=== PATIENT | male | born 1975 | race Caucasian/White ===

== ENCOUNTER → 2025-03-21 19:33 | Outpatient (CLI) | payer OTHER, SELFPAY ==
--- OUTSIDE RECORDS SUMMARY | 2025-03-21 19:38 | XMS_ITS | Data Portability ---
Author Organization [facility] & FIORELLA Rivera ADMIN Address [address] [place] [id number] Assessment No assessment recorded. Plan of Treatment Reminders Order Date Submit Date Provider Last Modified By Organization Details Last Modified Time Details Appointments OV EST 15 025 01:30PM Diogo Martinez Jr, MD Not available Not available Not available Lab estradi ol, serum 025 [facility] (Lab Registration) , [address] [place], [address], 02/02/2025 11:17:37 Referral None recorde d. Procedures None recorde d. Surgeries None recorde d. Imaging None recorde d. Medication Orders None recorde d. Patient TargetsNo targets recorded. Patient InstructionsNo instructions recorded. Reason for Referral None Reported. Results Created Date Observation Date Name Description Value Unit Range Abnormal Flag Note LastModifiedBy Organization Detail LastModifiedTime 01/29/2001/28/2025 ESTRA DIOL note Unles s other fried noted testi ng perfo rmed at: [facility] [place] [address] [phone] Maxime spears MD CLIA: [id number] Not Available [facility] (Lab Registration) [address] [place], [address], 02/02/2025 11:17:37 01/29/20 25 02/02/2025 ESTRA DIOL estradiol, sensitive 38.9 pg/mL 8.0-35 .0 high Speci men Comme nt: Test( s) 57454 0-Est radio l, Sensi tive Speci men Comme nt: was devel oped and its perfo rmanc e christopher cte risti cs Speci men Comme nt: deter mined by [facility]. It has not been hussein ared or appro whitney Speci men Comme nt: by the Food and Drug Admin istra tion. Metho dolog y: Liqui d chrom atogr aphy tande m mass spect romet ry(LC /MS/M S) Perfo rmed at: - [facility] [place] [address] [facility] , [place] [address] Lab Direc tor: Sarah banda MD, Phone : [phone] SENT TO REFER ENCE LAB Not Available [facility] (Lab Registration) [address], [place], [address], 02/02/2025 11:17:37 Result Notes None recorded. Procedures Surgical History Date Name Laterality Status Provider Name and Address Organization Details Recorded Time implantation of internal cardiac defibrillator completed [facility] [place] 01/28/2025 13:18:[address] [facility] [place] 01/28/2025 13:18:[address] [facility] [place] 01/28/2025 13:18:22 Imaging Results None recorded. Procedure Notes None recorded. Medical Equipment None Reported. Allergies No known drug allergies Medications Name Sig Start Date Stop Date Status Note LastModified by Organization Details LastModified Time metformin 500 mg tablet TAKE ONE (1) TABLET TWICE A DAY BY ORAL ROUTE FOR 90 DAYS. active Not Available Not Available No t Available anastrozole 1 mg tablet TAKE 1/2 TABLET BY MOUTH TWICE WEEKLY active Not Available Not Available No t Available carvedilol 12.5 mg tablet TAKE ONE (1) TABLET BY MOUTH TWO (2) TIMES A DAY WITH MEALS. active Not Available Not Available No t Available citalopram 40 mg tablet TAKE ONE (1) TABLET BY MOUTH EVERY DAY 01/28 completed Not Available Not Available Not Available clonazepam 0.5 mg tablet TAKE ONE (1) TABLET BY MOUTH TWICE DAILY active Not Available Not Available No t Available simvastatin 10 mg tablet TAKE ONE (1) TABLET EVERY DAY BY ORAL ROUTE. active Not Available Not Available No t Available losartan 25 mg tablet TAKE ONE (1) TABLET BY MOUTH EVERY DAY DIRECTED active Not Available Not Available No t Available ergocalcife rol (vitamin D2) 1,250 mcg (50,000 unit) capsule TAKE ONE (1) CAPSULE TWICE A WEEK BY ORAL ROUTE DIRECTED. active Not Available Not Available No t Available testosteron e cypionate 200 mg/mL intramuscul ar oil INJECT INTRAMUSC ULARLY ONE (1) ML EVERY WEEK active Not Available Not Available No t Available ibuprofen 600 mg tablet TAKE ONE (1) TABLET BY MOUTH EVERY SIX (6) HOURS NEEDED FOR PAIN CONTROL active Not Available Not Available No t Available escitalopra m 20 mg tablet TAKE ONE (1) TABLET EVERY DAY BY ORAL ROUTE. active Not Available Not Available No t Available BD Regular Bevel [place] 18 gauge x 1 1/2 USE DIRECTED active Not Available Not Available No t Available BD Eclipse Luer-Ino 3 mL 23 x 1 syringe USE DIRECTED active Not Available Not Available No t Available Ozempic 1 mg/dose (4 mg/3 mL) subcutaneou s pen injector INJECT ONE (1) MG BY SUBCUTANE OUS ROUTE FOR 30 DAYS. 01/28 completed Not Available Not Available Not Available BinaxNOW COVID-19 Ag Self Test kit TEST DIRECTED TODAY 01/28 completed Not Available Not Available Not Available Mounjaro 7.5 mg/0.5 mL subcutaneou s pen injector INJECT 7.5 MG EVERY WEEK BY SUBCUTANE OUS ROUTE. active Not Available Not Available No t Available Mounjaro 5 mg/0.5 mL subcutaneou s pen injector INJECT FIVE (5) MG EVERY WEEK BY SUBCUTANE OUS ROUTE. 01/28 completed Not Available Not Available Not Available Mounjaro 10 mg/0.5 mL subcutaneou s pen injector INJECT 10 MG EVERY WEEK BY SUBCUTANE OUS ROUTE. 01/28 completed Not Available Not Available Not Available Mounjaro 2.5 mg/0.5 mL subcutaneou s pen injector INJECT 2.5MG EVERY WEEK BY SUBCUTANE OUS ROUTE. 08/22 /2025 completed Not Available Not Available Not Available FreeStyle Mando 3 Sensor device USE DIRECTED PER DOCTOR IVY INSTRUCTI ONS CHANGE EVERY 14 DAYS active Not Available Not Available No t Available Ozempic 0.25 mg or 0.5 mg (2 mg/3 mL) subcutaneou s pen injector INJECT 0.25 MG EVERY WEEK BY SUBCUTANE OUS ROUTE FOR 30 DAYS THEN INCREASE TO 0.5MG WEEKLY FOR FOUR (4) WEEKS 01/28 completed Not Available Not Available Not Available Suflave 178.7 gram-7.3 gram-0.5 gram oral solution TAKE BY MOUTH DIRECTED BY DOCTOR WELLERS OFFICE 01/28 completed Not Available Not Available Not Available Vitals Date Recorded Body height Body mass index (BMI) Body weight Provider Name and Address Organization Details Last Updated DateTime 01/28/2025 195.58 cm 52.1 kg/m2 521802.05 g [facility] [place] 01/28/2025 13:16:20 Social History None recorded. Functional Status Question Answer Note LastModified by Organizat ion Details LastModified Time Do you or have you ever used any other forms of tobacco or nicotine? Yes [email or web address] Information not available 01/28/2025 What is your level of alcohol consumption? Occasional [email or web address] Information not available 01/28/2025 Do you or have you ever used smokeless tobacco? Currently chews tobacco [email or web address] Information not available 01/28/2025 Do you or have you ever used e-cigarettes or vape? Never used electronic cigarettes [email or web address] Information not available 01/28/2025 Mental Status None recorded. Family History Relationship Description Onset Age of this Age Resolved Age Notes LastModified by Organization Details LastModified Time Father No current problems or disability [email or web address] Not available 13:17:23 Mother No current problems or disability [email or web address] Not available 13:17:23 Medical History No medical history recorded. Past Encounters Encounter ID Performer Location Encounter Start Date Encounter Closed Date Diagnosis/Indication Diagnosis SNOMED-CT Code Diagnosis ICD10 Code Diagnosis IMO Codes Diagnosis Note [id number] Diogo Martinez Jr, MD [facility] [address] [address] 01/28/2025 12:58:29 01/28/2025 13:40:52 Hypotestosteronism 4390369670 104 E34.9 [id number] 49-year-ol d white male with symptoms of low testostero ne. Testostero ne levels revealed very low testostero ne levels. We discussed treatment options today and patient placed on 200 mg of testostero ne cypionate weekly. We will check an estrogen level as well. Risk and side effects of testostero ne replacemen t discussed including acne, elevated hemoglobin and decreased testicular size. Health Concerns Section Related Observation LastModified by Organization Detai ls LastModified Time None Recorded Concern Status LastModified by Organization Details LastModified Time None Recorded Advance Directives Directive None Recorded Payers Insurance Date Sequence Insurance Name Policy Number Policy Morales Covered Member ID Morales Member ID Guarantor Name 02/01/2025 1 [facility] [id number] [facility] [id number] [facility] Notes Date Note Type Note Provider Name and Address Organization Details Recorded Time 01/28/2025 text/html ROS as noted in the HPI Patient is 49-year-old white male referred for testosterone deficiency. During recent physical examination with his primary care physician he was noted to complain of being very tired and easy fatigue. Patient states that he could nap at any time of day. His testosterone levels were very low with a total of 175 and a free of 1.9. His hemoglobin is normal at 14.4. Patient does weigh 439 lb. He has lost 70 lb over the past few months on Mounjaro. Diogo Martinez Jr, MD [address] [place] [address], [address], [place], [address], [facility] - [place] & [place] 01/28/2025 13:43:17
--- OUTSIDE RECORDS SUMMARY | 2025-03-21 19:38 | XMS_ITS | Clinical Summary ---
Author Organization [facility] Address [address] [place] [address] Care Team Providers Care Shift Mechanic Name Role Phone Francine Carson BOILER PLANT WORKER Primary Care Provider [phone] Social History Tobacco Use Types Packs/Day Years Used Date Smoking Tobacco: Never Alcohol Use Standard Drinks/Week Comments Yes 0 (1 standard drink = 0.6 oz pure alcohol) Alcoholic Drinks/day: Rarely consumes alcohol Sex and Gender Information Value Date Recorded Sex Assigned at Male 04/16/2021 12:55 PM EST Legal Sex Male 8:37 PM EDT Gender Identity Male 04/16/2021 12:55 PM EST Sexual Orientation Straight 04/16/2021 12 :55 PM EST Last Filed Vital Signs Vital Sign Reading Time Taken Comments Blood Pressure - - Pulse - - Temperature - - Respiratory Rate - - Oxygen Saturation - - Inhaled Oxygen Concentration - - Weight 197 kg (434 lb 4.9 oz) 10/23/2016 2:26 PM EDT Height 195.6 cm (6' 5 ) 10/23/2016 2:19 PM EDT Body Mass Index 51.5 10/23/2016 2:19 PM EDT Plan of Treatment Health Maintenance Due Date Last Done Comments [facility]-Depression Screening 1974 [facility]-Infant/Child/Adol SDOH Screenings 1974 [facility]- SDOH Screenings 1992 [facility]-Adult SDOH Screenings 1992 [facility]-Hepatitis B Vaccines (1 of 3 - 19+ 3-dose series) 1993 CT Colonography 2019 Colonoscopy 2019 FIT-DNA 2019 FIT 2019 FOBT 2019 Sigmoidoscopy 2019 [facility]-Colorectal Cancer Screening 2019 [facility]-Pneumococcal Vaccine: 50 + Years (1 of 1 - PCV) 2024 [facility]-Zoster Vaccines (1 of 2) 2024 ZDT-PESZY-32 Vaccine (2 - season) 2025 08/22/2020 [facility]-Influenza Vaccine (#1) 2025 06/21/2020 [facility]-DTaP,Tdap,and Td Vaccine s (3 - Td or Tdap) 01/14/2028 01/13/2018, 01/05/2018, 08/24/1996 HPV Vaccines Aged Out No longer eligi ble based on patient's age to complete this topic [facility]-HIB Vaccines Aged Out No longer e ligible based on patient's age to complete this topic [facility]-Hepatitis A Vaccines Aged Out No longer eligible based on patient's age to complete this topic [facility]-IPV Vaccines Aged Out No longer e ligible based on patient's age to complete this topic [facility]-Rotavirus Vaccines Aged Out No lo nger eligible based on patient's age to [place] [address] Care Teams Shift Mechanic Relationship Specialty Start Date End Date Francine Carson APRN PCP - General 10/20/20
--- OUTSIDE RECORDS SUMMARY | 2025-03-21 19:38 | XMS_ITS | Clinical Summary ---
Author Organization [facility] Address [address] [place] [address] Care Team Providers Care Air Conditioning Unit Tester Name Role Phone Allie Fonseca APRN Primary Care Provider [phone] Allergies No known active allergies Medications aspirin 81 MG tablet Take 1 tablet by mouth Every Night. Active Multiple Vitamin (MULTI-VITAMIN DAILY PO) Take 1 tablet by mouth Daily. Active citalopram (CeleXA) 40 MG tablet Take 1 tablet by mouth Every Night. Active clonazePAM (KlonoPIN) 0.5 MG tablet Take 1 tablet by mouth 3 (Three) Times a Day As Needed for Anxiety (Rarely uses). Active carvedilol (COREG) 12.5 MG tablet Take 1 tablet by mouth 2 (Two) Times a Day With Meals. 180 tablet 3 03/26/2024 Active losartan (COZAAR) 25 MG tablet Take 1 tablet by mouth Every Night. 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 Never 01/25/2021 Average Number of Drinks Not on file 021 Frequency of Binge Drinking Not on file 01/07 Sex and Gender Information Value Date Recorded Sex Assigned at Not on file Legal Sex Male 4:53 PM EDT Gender Identity Not on file Sexual Orientation Not on file Last Filed Vital Signs Vital Sign Reading Time Taken Comments Blood Pressure 144/88 03/25/2024 11:57 AM EDT Pulse 93 03/25/2024 11:57 AM EDT Temperature 36.5 C (97.7 F) 12/05/2018 7:27 AM EDT Respiratory Rate 16 12/05/2018 7:27 AM EDT Oxygen Saturation 95% 03/25/2024 11:57 AM EDT Inhaled Oxygen Concentration - - Weight 220 kg (485 lb) 03/25/2024 11:57 AM EDT Height 195.6 cm (6' 5 ) 03/25/2024 11:57 AM EDT Body Mass Index 57.51 03/25/2024 11:57 AM EDT Plan of Treatment Health Maintenance Due Date Last Done Comments ANNUAL PHYSICAL 08/21/2017 HEPATITIS C SCREENING 08/21/2017 COLOGUARD 2019 COLON CANCER SCREENING 5 YEA R SIGMOIDOSCOPY 2019 COLONOSCOPY 2019 [address] CANCER SCREENING [address] COLONOGRAPHY 2019 FECAL OCCULT BLOOD TEST 2019 FIT Testing (1 year) 2019 Pneumococcal Vaccine 50+ (1 of 1 - PCV) 2024 ZOSTER VACCINE (1 of 2) 2024 INFLUENZA VACCINE 01/07/2025 06/21/2020 TDAP/TD VACCINES (3 - Td or Tdap) 01/14/2028 018, 08/24/1996 Medical Devices Implanted Type Area Roving Carrier Device Identifier Shelf Expiration Date Model / Serial / Lot Icd-06/22/2015 Implanted:06/22 by Keron Clarke MD (Quantity not on file) ICD [employer] Icd Fortify Assura Next Gen Vr 40 Df4 - [id number] - [id number] Implanted:Qty: 1 on 12/04/2018 by Keron Clarke MD at [facility] ICD [facility] [employer] 09/07/2019 [id number] / [id number] / [id number] Uday Borges Sj4 65cm [id number] - [id number] - [id number] Implanted:Qty: 1 on 12/04/2018 by Keron Clarke MD at [facility] Lead [employer] 03/08/2019 [id number] / [id number] / [id number] Procedures Procedure Name Priority Date/Time Associated Diagnosis Comments REMOTE DEVICE CHECK 01/05/2025 4 :10 AM EDT from Last 3 Months Results * Remote Device Check (01/05/2025 4:10 AM EDT) Date Time Interrogation Session [id number] [facility] Type Interrogation Session Remote Scheduled [facility] Implantable Pulse Generator Roving Carrier [facility] Implantable Pulse Generator Type ICD [facility] Implantable Pulse Generator Model [id number] [employer]() VR [facility] Implantable Pulse Generator Serial Number [id number] [facility] Implantable Pulse Generator Implant Date [id number] [facility] Battery Remaining Percentage 51.00 % [facility] Battery Remaining Longevity 55.0 mo [facility] Battery Voltage 2.960 [facility] Battery VALVE STEAMER Trigger 2.590 [facility] Battery Status Middle of Service [facility] Capacitor Charge Time 8.900 [facility] Navneet Statistic RV Percent Paced 1.00 [facility] Lead Channel RV Sensing Intrinsic Amplitude 11.400 [facility] Lead Channel Setting RV Sensing Sensitivity 0.50 [facility] Lead Channel RV Impedance Value 540 [facility] Lead Channel Setting RV Pacing Amplitude 2.500 [facility] Lead Channel Setting RV Pacing Pulse Width 0.5 [facility] Navneet Setting Mode (NBG Code) VVI [facility] Navneet Setting Lower Rate Limit 40 [facility] Navneet Setting Maximum Sensor Rate 120 [facility] Therapy Statistic Recent Shocks Delivered 0 [facility] Therapy Statistic Recent Shocks Aborted 0 [facility] Therapy Statistic Recent ATP Delivered 0 [facility] SHOCK MEASURED IMPEDANCE 69 [facility] Lead Channel Setting RV Sensing Polarity Bipolar [facility] Lead Channel Setting RV Pacing Polarity Bipolar [facility] Lead Channel RV Pacing Threshold Polarity Bipolar [facility] Zone Setting Type Category VT [facility] IDC RATE 1 179 [facility] Zone Setting Status On [facility] Zone ID 1 [facility] Zone Setting Type Category VT [facility] Zone Setting Status Inactive [facility] Zone ID 2 [facility] Zone Setting Type Category VF [facility] IDC RATE 1 222 [facility] THERAPIES 32.2J,35.8J,35.8J x 4 [facility] Zone Setting Status On [facility] Zone ID 3 [facility] 01/05/2025 4:10 AM EDT us Keron Clarke MD CV IMPLANTABLE CARDIAC DEVIC E Final Result [facility] from Last 3 Months Insurance Care Teams Air Conditioning Unit Tester Relationship Specialty Start Date End Date Allie Fonseca APRN PCP - General Nurse Practitioner 02/27/23
--- OUTSIDE RECORDS SUMMARY | 2025-03-21 19:38 | XMS_ITS | Continuity of Care Document ---
Author Organization [facility] [place] Address [address] [place] [address] Assessment No assessment recorded. Plan of Treatment Reminders Order Date Submit Date Provider Last Modified By Organization Details Last Modified Time Details Appointments OV EST 15 025 01:30PM Diogo Martinez Jr, MD Not available Not available Not available Lab estradi ol, serum 025 025 [facility] (Lab Registration) , [address], [place], [address], 02/02/2025 11:17:37 Referral None recorde d. Procedures None recorde d. Surgeries None recorde d. Imaging None recorde d. Medication Orders None recorde d. Patient TargetsNo targets recorded. Patient InstructionsNo instructions recorded. Reason for Referral None Reported. Results Created Date Observation Date Name Description Value Unit Range Abnormal Flag Note LastModifiedBy Organization Detail LastModifiedTime 01/29/20 25 01/28/2025 ESTRA DIOL note Unles s other fried noted testi ng perfo [facility]med at: [facility] [address] [place] [address] [phone] Maxime spears MD CLIA: [id number] Not Available [facility] (Lab Registration) [address] [place], [address], 02/02/2025 11:17:37 01/29/20 25 02/02/2025 ESTRA DIOL estradiol, sensitive 38.9 pg/mL 8.0-35 .0 high Speci men Comme nt: Test( s) 66254 0-Est radio l, Sensi tive Speci men [...] S) Perfo rmed at: - [facility] [place] [address] [facility] , [place] [address] Lab Direc tor: Sarah banda MD, Phone : [phone] SENT TO REFER ENCE LAB Not Available [facility] (Lab Registration) [address] , [place], [address], 02/02/2025 11:17:37 Result Notes None recorded. Procedures Surgical History Date Name Laterality Status Provider Name and Address Organization Details Recorded Time implantation of internal cardiac defibrillator completed [facility] [place] 01/28/2025 13:18:08 cholecystectomy completed [facility] [place] 01/28/2025 13:18:17 appendectomy completed [facility] [place] 01/28/2025 13:18:22 Imaging Results None recorded. Procedure [...] Available No t Available BD Regular Bevel [place] 18 gauge x 1 1/2 USE DIRECTED [...] 2.5MG EVERY WEEK BY SUBCUTANE OUS ROUTE. 01/28 completed Not Available Not Available Not Available FreeStyle Mando 3 Sensor device USE DIRECTED PER DOCTOR IVY [place] ONS CHANGE EVERY 14 DAYS active Not [...] Updated DateTime 01/28/2025 195.58 cm 52.1 kg/m2 133783.05 g [facility] 01/28/2025 13:16:20 Social History None recorded. Functional Status Question Answer Note LastModified by Organizat ion Details LastModified Time Do you or have you ever used any other forms of tobacco or nicotine? Yes [email or web address] Information not available 01/28/2025 What is your level of alcohol consumption? Occasional [email or web address] Information not available 01/28/2025 Do you or have you ever used smokeless tobacco? Currently chews tobacco Information not available 01/28/2025 Do you or have you ever used e-cigarettes or vape? Never used electronic cigarettes [email or web address] Information not available 01/28/2025 Mental Status None recorded. Family History Relationship Description Onset Age of this Age Resolved Age Notes LastModified by Organization Details LastModified Time Father No current problems or disability [email or web address] Not available 13:17:23 Mother No current problems or disability [email or web address] Not available 13:17:23 Medical History No medical history recorded. Past Encounters Encounter ID Performer Location Encounter Start Date Encounter Closed Date Diagnosis/Indication Diagnosis SNOMED-CT Code Diagnosis ICD10 Code Diagnosis IMO Codes Diagnosis Note [id number] Diogo Martinez Jr, MD [facility] [place] [phone] 01/28/2025 12:58:29 01/28/2025 13:40:52 Hypotestosteronism [id number] 104 E34.9 [id number] 49-year-ol d white male with symptoms of [...] by Organization Details LastModified Time None Recorded Payers Encounter Date Sequence Insurance Name Policy Number Policy Morales Covered Member ID Morales Member ID Guarantor Name 01/28/2025 1 [facility] [id number] [facility] [id number] [facility] Notes Date Note Type Note Provider Name [...] months on Mounjaro. Diogo Martinez Jr, MD [address] [place] [address], [address], [place], [address], [place] - [facility] - [place] & [place] 01/28/2025 13:43:17
== END ==
LOC: SL 19:36
PROVIDERS: PCP Nurse Practitioner Family; Visit Provider Specialist
DX: G47.30 Sleep apnea, unspecified (principal); E11.9 Type 2 diabetes mellitus without complications; F41.9 Anxiety disorder, unspecified; I48.91 Unspecified atrial fibrillation; I10 Essential (primary) hypertension